=== PATIENT | male | born 1980 ===

== ENCOUNTER 2020-10-25 08:25 | Outpatient (CLI) | payer BC | END 2020-10-25 08:26 | disposition home or self-care (01) | LOC: BICULT 08:25 | PROVIDERS: ATTEND Family Medicine | DX: K76.0 Fatty (change of) liver, not elsewhere classified (principal); R79.89 Other specified abnormal findings of blood chemistry; K80.20 Calculus of gallbladder without cholecystitis without obstruction | CPT/HCPCS: 76705 ==